=== PATIENT | female | born 1945 | race African-American/Black ===

== ENCOUNTER 2017-10-31 11:33 | Emergency (ER) | payer OTHER ==
--- NOTE | 2017-10-31 14:30 | RAD REPORT ---
EXAM DESCRIPTION: RAD - Knee Right 3 View - 10/31/2017 2:20 pm CLINICAL HISTORY: Fall, right knee pain COMPARISON: 04/29/2013 FINDINGS: Tricompartmental osteoarthritis is present. Small suprapatellar joint effusion is present. No acute fracture is suspected.
--- NOTE | 2017-10-31 14:57 | RAD REPORT ---
EXAM DESCRIPTION: RAD - Hip Right 2 View - 10/31/2017 2:48 pm CLINICAL HISTORY: History of fall, right hip pain COMPARISON: 04/29/2013 FINDINGS: Mild osteoarthritic changes are present involving the right hip. No fracture, dislocation or AVN.
--- NOTE | 2017-10-31 15:24 | EDPHYS ---
Physician Documentation [facility] Name: Stephie Pham Age: 72 yrs Sex: Female : 1945 Arrival Date: 10/31/2017 Time: 11:39 Bed 27 Private MD: ED Physician Darrius Cortes HPI: 10/31 15:17 This 72 yrs old Black Female presents to ER via Ambulatory with complaints of Fall pm1 Injury. 15:17 Details of fall: The patient fell from an upright position, while standing. Onset: The pm1 symptoms/episode began/occurred yesterday. Associated injuries: The patient sustained Right hip and right knee. Abrasion to face and left knee. Severity of symptoms: in the emergency department the symptoms are unchanged. The patient has not experienced similar symptoms in the past. patient slipped in the garage and landed on her right hip and knee. Patient with abrasion to left knee and face. Patient without headache, LOC, or neck pain. No nausea or vomiting. Patient able to walk with right knee and right hip pain. Historical: - Allergies: 12:01 No Known Allergies; lk1 - PMHx: 12:01 Hypertension; Diabetes - NIDDM; Osteoporosis; seasonal allergies; lk1 - PSHx: 12:01 Hysterectomy; left parotidectomy; bladder repair; lk1 - Immunization history:: Adult Immunizations up to date. - Social history:: Smoking status: Patient/guardian denies using tobacco. ROS: 15:17 Constitutional: Negative for fever, chills, and weight loss, Eyes: Negative for injury, pm1 pain, redness, and discharge, ENT: Negative for injury, pain, and discharge, Neck: Negative for injury, pain, and swelling, Cardiovascular: Negative for chest pain, palpitations, and edema, Respiratory: Negative for shortness of breath, cough, wheezing, and pleuritic chest pain, Abdomen/GI: Negative for abdominal pain, nausea, vomiting, diarrhea, and constipation, Back: Negative for injury and pain. 15:17 Skin: Negative for injury, rash, and discoloration, Neuro: Negative for headache, weakness, numbness, tingling, and seizure. 15:17 MS/extremity: Positive for pain, of the right hip and right knee. Exam: 15:21 Constitutional: This is a well developed, well nourished patient who is awake, alert, pm1 and in no acute distress. Neck: Trachea midline, no thyromegaly or masses palpated, and no cervical lymphadenopathy. Supple, full range of motion without nuchal rigidity, or vertebral point tenderness. No Meningismus. Chest/axilla: Normal chest wall appearance and motion. Nontender with no deformity. No lesions are appreciated. Cardiovascular: Regular rate and rhythm with a normal S1 and S2. No gallops, murmurs, or rubs. Normal PMI, no JVD. No pulse deficits. Respiratory: Lungs have equal breath sounds bilaterally, clear to auscultation and percussion. No rales, rhonchi or wheezes noted. No increased work of breathing, no retractions or nasal flaring. Abdomen/GI: Soft, non-tender, with normal bowel sounds. No distension or tympany. No guarding or rebound. No evidence of tenderness throughout. Back: No spinal tenderness. No costovertebral tenderness. Full range of motion. Skin: Warm, dry with normal turgor. Normal color with no rashes, no lesions, and no evidence of cellulitis. 15:21 Eyes: Pupils equal round and reactive to light, extra-ocular motions intact. Lids and lashes normal. Conjunctiva and sclera are non-icteric and not injected. Cornea within normal limits. Periorbital areas with no swelling, redness, or edema. ENT: Nares patent. No nasal discharge, no septal abnormalities noted. Tympanic membranes are normal and external auditory canals are clear. Oropharynx with no redness, swelling, or masses, exudates, or evidence of obstruction, uvula midline. Mucous membranes moist. 15:21 Head/face: Exam is negative for khanna signs, contusion, raccoon eyes, Noted is abrasion(s), that are mild, of the forehead and left cheek. 15:21 Musculoskeletal/extremity: Extremities: grossly normal except: noted in the right hip and right knee: tenderness, There is no evidence of decreased ROM, deformity, Circulation is intact in all extremities. 15:21 Neuro: Orientation: is normal, Motor: is normal, moves all fours. Vital Signs: 12:02 BP 118 / 69; Pulse 86; Resp 15; Temp 97.3(TE); Pulse Ox 98% on R/A; Weight 86.18 kg lk1 (R); Height 5 ft. 1 in. (154.94 cm) (R); Pain 7/10; 14:27 BP 105 / 53; Pulse 65; Resp 18; Pulse Ox 100% on R/A; tl3 15:52 BP 126 / 84; Pulse 74; Resp 16; Pulse Ox 100% on R/A; tl3 12:02 Body Mass Index 35.90 (86.18 kg, 154.94 cm) lk1 MDM: 14:49 Patient medically screened. pm1 15:22 Data reviewed: vital signs. Data interpreted: Pulse oximetry: on room air is 100 %. pm1 Interpretation: normal. Counseling: I had a detailed discussion with the patient and/or guardian regarding: the historical points, exam findings, and any diagnostic results supporting the discharge/admit diagnosis, radiology results, the need for outpatient follow up, for definitive care, a orthopedic surgeon, to return to the emergency department if symptoms worsen or persist or if there are any questions or concerns that arise at home. 10/31 14:25 Order name: Urine Dipstick--Ancillary (enter results) bd 10/31 13:24 Order name: Knee Right 3 View XRAY; Complete Time: 15:00 aa5 10/31 13:24 Order name: Hip Right 2 View XRAY; Complete Time: 15:00 aa5 10/31 15:25 Order name: Maxi wrap-joint: right knee; Complete Time: 15:32 pm1 Administered Medications: No medications were administered Disposition: 10/31/17 15:24 Discharged to Home. Impression: Other slipping, tripping and stumbling and falls, Pain in right hip - contusion, Pain in right knee - suprapatellar joint effusion. - Condition is Stable. - Discharge Instructions: Abrasion, Contusion, Knee Pain, Hip Pain. - Medication Reconciliation Form, Thank You Letter form. - Follow up: Emergency Department; When: As needed; Reason: Worsening of condition. Follow up: Lui Kirk MD; When: 2 - 3 days; Reason: Recheck today's complaints, Continuance of care, Re-evaluation by your physician. - Problem is new. - Symptoms have improved. Addendum: 11/01/2017 18:49 Co-signature as Attending Physician, Darrius Cortes MD. g s Signatures: Dispatcher [employer] EDMS Geetha Menard, RN RN lk1 Khai Tatum, BASE MANAGER BASE MANAGER pm1 Darrius Cortes MD MD gs Lowrey, Tammy, RN RN tl3 Corrections: (The following items were deleted from the chart) 10/31 15:57 15:24 10/31/2017 15:24 Discharged to Home. Impression: Other slipping, tripping and tl3 stumbling and falls; Pain in right hip - contusion; Pain in right knee - suprapatellar joint effusion. Condition is Stable. Forms are Medication Reconciliation Form, Thank You Letter, Antibiotic Education, Prescription Opioid Use. Follow up: Emergency Department; When: As needed; Reason: Worsening of condition. Follow up: Lui Kirk; When: 2 - 3 days; Reason: Recheck today's complaints, Continuance of care, Re-evaluation by your physician. Problem is new. Symptoms have improved. pm1
--- NOTE | 2017-10-31 15:24 | ER ---
Nurse's Notes [facility] Name: Stephie Pham Age: 72 yrs Sex: Female : 1945 Arrival Date: 10/31/2017 Time: 11:39 Bed 27 Private MD: Diagnosis: Other slipping, tripping and stumbling and falls;Pain in right hip-contusion;Pain in right knee-suprapatellar joint effusion Presentation: 10/31 11:57 Presenting complaint: Patient states: I fell in the garage at home yesterday afternoon lk1 and hurt my right knee. This morning I am having pain in the right hip, so I wanted to get checked out. Transition of care: patient was not received from another setting of care. Onset of symptoms was October 30, 2017 at 13:00. Initial Sepsis Screen: Does the patient meet any 2 criteria? No. Patient's initial sepsis screen is negative. Does the patient have a suspected source of infection? No. Patient's initial sepsis screen is negative. Care prior to arrival: None. 11:57 Method Of Arrival: Ambulatory lk1 11:57 Acuity: MOOSE 4 lk1 Triage Assessment: 12:01 General: Appears in no apparent distress. Behavior is calm, cooperative, appropriate lk1 for age. Pain: Complains of pain in right knee Pain radiates to right hip Pain currently is 7 out of 10 on a pain scale. Historical: - Allergies: 12:01 No Known Allergies; lk1 - PMHx: 12:01 Hypertension; Diabetes - NIDDM; Osteoporosis; seasonal allergies; lk1 - PSHx: 12:01 Hysterectomy; left parotidectomy; bladder repair; lk1 - Immunization history:: Adult Immunizations up to date. - Social history:: Smoking status: Patient/guardian denies using tobacco. Screenin:00 Abuse screen: Denies threats or abuse. Nutritional screening: No deficits noted. tl3 Tuberculosis screening: No symptoms or risk factors identified. Fall Risk None identified. Assessment: 14:00 General: Appears in no apparent distress. comfortable, well groomed, well developed, tl3 well nourished, Behavior is calm, cooperative, appropriate for age. Pain: Complains of pain in pelvis and right hip and right leg and right knee Pain currently is 7 out of 10 on a pain scale. Neuro: Level of Consciousness is awake, alert, obeys commands, Oriented to person, place, time, situation, Appropriate for age. Cardiovascular: Heart tones S1 S2 present Patient's skin is warm and dry. Respiratory: Airway is patent Trachea midline Respiratory effort is even, unlabored, Respiratory pattern is regular, symmetrical, Breath sounds are clear bilaterally. GI: No signs and/or symptoms were reported involving the gastrointestinal system. : No signs and/or symptoms were reported regarding the genitourinary system. EENT: No signs and/or symptoms were reported regarding the EENT system. Derm: Reports pain that is 7 out of 10 on a pain scale. pt fell in garage yesterday, bruise noted to inside of left knee, left eye blackened, abrasion across forehead. Musculoskeletal: Reports pain in pelvis and right hip and right leg and right knee since yesterday. Pain is 7 out of 10 on a pain scale. 15:52 Reassessment: Patient appears in no apparent distress at this time. No changes from tl3 previously documented assessment. Patient and/or family updated on plan of care and expected duration. Pain level reassessed. Patient is alert, oriented x 3, equal unlabored respirations, skin warm/dry/pink. judson wrap applied to right knee for support and comfort. Vital Signs: 12:02 BP 118 / 69; Pulse 86; Resp 15; Temp 97.3(TE); Pulse Ox 98% on R/A; Weight 86.18 kg lk1 (R); Height 5 ft. 1 in. (154.94 cm) (R); Pain 7/10; 14:27 BP 105 / 53; Pulse 65; Resp 18; Pulse Ox 100% on R/A; tl3 15:52 BP 126 / 84; Pulse 74; Resp 16; Pulse Ox 100% on R/A; tl3 12:02 Body Mass Index 35.90 (86.18 kg, 154.94 cm) lk1 ED Course: 11:39 Patient arrived in ED. sb2 11:59 Triage completed. lk1 12:02 Arm band placed on right wrist. lk1 14:00 Patient has correct armband on for positive identification. Bed in low position. Call tl3 light in reach. Side rails up X 1. Adult w/ patient. Pulse ox on. NIBP on. 14:00 No provider procedures requiring assistance completed. tl3 14:00 X-ray(s) taken. tl3 14:16 X-ray completed. Portable x-ray completed in exam room. Patient tolerated procedure mh1 well. 14:18 Knee Right 3 View XRAY In Process Unspecified. EDMS 14:20 Yesi Mon, RN is Primary Nurse. tl3 14:43 Hip Right 2 View XRAY Sent. tl3 14:48 Hip Right 2 View XRAY In Process Unspecified. EDMS 14:49 Khai Tatum NP is [facility]. pm1 14:49 Darrius Cortes MD is Attending Physician. pm1 14:55 X-ray completed. Patient tolerated procedure well. Patient moved back from radiology. mh1 15:23 Lui Kirk MD is Referral Physician. pm1 15:52 Patient did not have IV access during this emergency room visit. tl3 Administered Medications: No medications were administered Outcome: 15:24 Discharge ordered by MD. pm1 15:52 Discharged to home ambulatory. tl3 15:52 Condition: stable 15:52 Discharge instructions given to patient, family, Instructed on discharge instructions, follow up and referral plans. rest ice and elevation of right leg, Motrin as needed for pain and swelling 15:57 Patient left the ED. tl3 Signatures: Dispatcher [employer] EDKY Elise Zamora 1 Geetha Menard RN RN lk1 Khai Tatum NP PHYSICAL THERAPY NURSE pm1 Linette Carrasco 2 Yesi Mon, ALEXANDER RN tl3
[2017-10-31 16:57] LABS: Urine Blood NEGATIVE (NEG); Urine Glucose NEGATIVE (NEG); Urine Protein NEGATIVE (NEG)
== END 2017-10-31 15:57 | disposition home or self-care (01) ==
LOC: ER 11:33
DX: S70.01XA Contusion of right hip, initial encounter (principal); M25.561 Pain in right knee; M25.461 Effusion, right knee; W01.0XXA Fall on same level from slipping, tripping and stumbling without subsequent striking against object, initial encounter; Y93.9 Activity, unspecified; Y92.9 Unspecified place or not applicable
CPT/HCPCS: 81003; 99283

== ENCOUNTER → 2022-12-04 | Day surgery (SDC) | payer OTHER ==
--- NOTE | 2022-12-04 10:36 | RAD REPORT ---
EXAM DESCRIPTION: US - Guided FNA Non Breast - 12/04/2022 10:12 am CLINICAL HISTORY: E04.1 COMPARISON: No comparisons FINDINGS: Preoperative diagnosis: Left thyroid goiter. Post operative diagnosis: Same. Conscious Sedation: None Fluoroscopy time: None Contrast used: None Estimated blood loss: Minimal Specimens:5 x 25 gauge FNA samples The left thyroid was prepped and draped in the usual sterile fashion. 1% lidocaine was infiltrated in to the subcutaneous tissues for local anesthesia. Real time ultrasound scanning of the left thyroid d emonstrated large diffuse goiter disappearance of the left thyroid lobe which extends inferiorly.. Un ann marie ultrasound guidance, using 25 gauge FNA needles, 5 specimens were obtained of this lesion and sen t to pathology for evaluation. There were no complications. IMPRESSION: Technically successful ultrasound-guided FNA procedure left thyroid lobe goiter.
== END ==
LOC: FNA 08:00
PROVIDERS: ATTEND Otolaryngology
PROC: 0GBG3ZX Excision of Left Thyroid Gland Lobe, Percutaneous Approach, Diagnostic (ICD-10-PCS; principal; 2022-12-04)
DX: E04.1 Nontoxic single thyroid nodule (principal)
CPT/HCPCS: 88162